=== PATIENT | female | born 1935 | race Caucasian/White ===

== ENCOUNTER → 2016-09-07 | Outpatient (CLI) | payer OTHER | LOC: MMPC 11:11 | PROVIDERS: ATTEND Internal Medicine | DX: E53.8 Deficiency of other specified B group vitamins (principal); D50.9 Iron deficiency anemia, unspecified; E11.9 Type 2 diabetes mellitus without complications; E78.5 Hyperlipidemia, unspecified; I10 Essential (primary) hypertension | CPT/HCPCS: G0463; J3420 ==

== ENCOUNTER → 2016-09-16 | Outpatient (CLI) | payer OTHER ==
[2016-09-16 10:57] LABS: EOSINOPHILS # (AUTO) 0.13 10*3/UL; EOSINOPHILS % (AUTO) 2.3 % (0-8); HEMATOCRIT 34.8 % (37.0-47.0); HEMOGLOBIN 10.9 g/dL (12.0-16.0); MEAN CORPUSCULAR HGB CONC 31.3 g/dL (33-37); MONOCYTES # (AUTO) 0.41 10*3/UL (0.3-0.8)
[2016-09-16 11:15] LABS: BUN/CREATININE RATIO 22.85 (6-20); CALCIUM 7.6 mg/dL (8.7-10.7)
[2016-09-16 11:52] LABS: BASOPHILS # (AUTO) 0.04 10*3/UL; BASOPHILS % (AUTO) 0.7 % (0-1); LYMPHOCYTES # (AUTO) 1.71 10*3/uL; MEAN CORPUSCULAR HEMOGLOBIN 25.8 PG (27-31); MEAN CORPUSCULAR VOLUME 82.3 FL (81-99); MEAN PLATELET VOLUME 9.7 FL (7.4-12.2); MONOCYTES % (AUTO) 7.3 % (5-15); NEUTROPHILS # (AUTO) 3.29 10*3/UL; NEUTROPHILS % (AUTO) 58.9 % (50-80); RED BLOOD COUNT 4.23 10^6/uL (4.20-5.40)
[2016-09-16 11:55] LABS: CHOL/HDL RATIO 3.35 RATIO (0-4.0); URIC ACID 3.5 mg/dl (2.5-7.5)
[2016-09-16 11:55] LABS: PLATELET MORPHOLOGY COMMENT NORMAL MORPHOLOGY (NORM); RBC MORPHOLOGY COMMENT NORMAL MORPHOLOGY (NORM); WBC MORPHOLOGY COMMENT NORMAL MORPHOLOGY (NORM)
== END ==
LOC: LAB 10:09
PROVIDERS: ATTEND Internal Medicine
DX: E11.9 Type 2 diabetes mellitus without complications (principal); D50.9 Iron deficiency anemia, unspecified; E78.5 Hyperlipidemia, unspecified; I10 Essential (primary) hypertension; E53.8 Deficiency of other specified B group vitamins
CPT/HCPCS: 36415; 80053; 80061; 82550; 82607; 82728; 83540; 83550; 83921; 84443; 84550; 85025

== ENCOUNTER → 2016-09-21 | Outpatient (CLI) | payer OTHER | LOC: MMPC 11:11 | PROVIDERS: ATTEND Internal Medicine | DX: D50.9 Iron deficiency anemia, unspecified (principal); E11.9 Type 2 diabetes mellitus without complications; I10 Essential (primary) hypertension | CPT/HCPCS: 83037; 99214; G0463 ==

== ENCOUNTER → 2016-10-11 | Outpatient (CLI) | payer OTHER | LOC: MMPC 11:11 | PROVIDERS: ATTEND Internal Medicine | DX: D50.9 Iron deficiency anemia, unspecified (principal) | CPT/HCPCS: G0463; J3420 ==

== ENCOUNTER 2018-08-06 12:32 | Inpatient (IN) ==
[2018-08-06] MEDS ORDERED: Sodium Chloride 0.9% 1,000 ML PRIMARY IV ONE (13:28)
[2018-08-06 14:23] LABS: VENOUS PH 7.41 (7.32-7.42)
--- NOTE | 2018-08-06 14:24 | EKG ---
[address] [place] [address] Measurements Intervals [place] Rate: 88 P: -38 [place]: 190 QRS: 67 QRSD: 92 T: 40 QT: 407 QTc: 453 Interpretive Statements SINUS RHYTHM WITH OCCASIONAL SUPRAVENTRICULAR PREMATURE COMPLEXES LOW QRS VOLTAGE IN PRECORDIAL LEADS [QRS DEFLECTION] POSSIBLE ANTERIOR MYOCARDIAL INFARCTION PROBABLY OLD No previous ECG available for comparison Electronically Signed On 08-06-18 19:00:52 MDT by Cricket Mcghee [email or web address]
[2018-08-06 14:28] LABS: Hematocrit [HCT] 28.8 % (37.0-47.0); Hemoglobin [HGB] 9.5 g/dL (12.0-16.0); RED BLOOD COUNT 3.58 10^6/uL (4.20-5.40)
[2018-08-06 14:29] LABS: BASOPHILS # (AUTO) 0.03 10*3/UL; BASOPHILS % (AUTO) 0.3 % (0-1); EOSINOPHILS # (AUTO) 0.08 10*3/UL; EOSINOPHILS % (AUTO) 0.8 % (0-8); MEAN CORPUSCULAR HEMOGLOBIN 26.6 PG (27-31); MEAN CORPUSCULAR VOLUME 81 FL (81-99); MONOCYTES # (AUTO) 0.69 10*3/UL (0.3-0.8); NEUTROPHILS # (AUTO) 7.69 10*3/UL; NEUTROPHILS % (AUTO) 78.6 % (50-80); PLATELET MORPHOLOGY COMMENT NORMAL MORPHOLOGY (NORM); RBC MORPHOLOGY COMMENT NORMAL MORPHOLOGY (NORM); WBC MORPHOLOGY COMMENT NORMAL MORPHOLOGY (NORM)
[2018-08-06 14:37] LABS: BLOOD UREA NITROGEN 36 mg/dL (7-22); SERUM ALBUMIN 2.5 g/dL (3.5-4.8)
--- NOTE | 2018-08-06 15:23 | DI ---
XR CXR 2VW PA/LAT 08/06/2018 1:28 PM History: [facility] DI ^chf Comparison: 08/04/2018. Findings: PA and lateral views of the chest demonstrate patchy left lung base opacity. There is no pn eumothorax or pleural effusion. The cardiomediastinal silhouette is normal in size with atheromatous calcifications in the arch of the tortuous thoracic aorta. The osseous structures are not significant ly changed. Impression: There is patchy left lung base opacity that could represent atelectasis versus early air space disease in the correct clinical setting.
[2018-08-06] MEDS ORDERED: BACITRACIN 0.9 GM PACKET OINT TOPICAL ONE (15:43)
--- NOTE | 2018-08-06 16:15 | PDOC ---
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 The family said that she was diagnosed in March of this year with hepatic cirrhosis likely secondary to Fu, her disease was complicated by hepatic encephalopathy she needed admission 3 times in [place] for the same condition, also she had ascites that drained twice, there was no history of infection based on what they said. There was no history of GI bleed. Had an EGD there was no varices or bleeding. She did not require blood transfusion. They live in [place] during the winter and they came back in June to [facility]. The Hepatic cirrhosis and encephalopathy was treated with diuretics in addition to rifaximin and lactulose and ammonia level was low last week and she saw Dr. Keenan her primary who told her to cut back on the dosage of the activity does and he stopped the rifaximin. Over the weekend her mentation started to decrease last night especially she was very weak very lethargic did not take her night medication. 2 days ago they brought her to the ER because of weakness and leg swelling and her ammonia level was higher than before and they are physician told them to increase the lactulose to 4 times a day. They did not have rifaximin as she ran out. Today she is more awake but she is still weak. Normally she is able to walk using her walker or a cane. She was seen by the community paramedics and he discuss it with me this morning. She was brought to the hospital. She had multiple test the ER which showed worsening renal function and she was on admitted to the hospital. The patient herself is awake she but could not tell me the day or the month or the year, however she denied chest pain, abdominal pain. She is hungry she said. She did not eat today. She did not take her morning medication. Past Medical History Medical History: 1. History of hypertension. 2. History of hypothyroidism. 3. History of GERD. 4. History of diabetes. 5. History of gout. 6. History of hepatic cirrhosis secondary to Fu complicated by ascites as needed paracentesis back in March this year, also had the hepatic encephalopathy. 6. History of atrial fibrillation Surgical History: 1. History of corticectomy. 2. History of hysterectomy. 3. History of thyroidectomy Family History: Reviewed an Not Pertinent Past Social History: Used to smoke, doesn't drink no drugs. Lives in [facility]. Tobacco Use: Never Smoker In the Past 12 Months, Have Used or Abuse Any of the Following Substance: None Medication / Allergies Home Medications: Home Medications Medication Instructions Recorded Confirmed blood sugar diagnostic strips 1 strip MISCELLANEOUS QDAY #100 08/30/17 08/06/18 strip apixaban 5 mg tablet 5 mg PO BID #180 tab 07/12/18 08/06/18 bumetanide 1 mg tablet 1 mg PO QDAY #90 tab 07/12/18 08/06/18 empagliflozin 25 mg tablet 25 mg PO QDAY #90 tab 07/12/18 08/06/18 levothyroxine 112 mcg tablet 112 mcg PO QDAY #90 tab 07/12/18 08/06/18 multivitamin tablet 1 tab PO QDAY #90 tab 07/12/18 08/06/18 omeprazole 20 mg capsule,delayed 20 mg PO QDAY #90 cap 07/12/18 08/06/18 release spironolactone 50 mg tablet 50 mg PO QDAY #90 tab 07/12/18 08/06/18 ascorbic acid (vitamin C) 500 mg 1 g PO QDAY #90 tab 07/13/18 08/06/18 tablet insulin glargine (U-300) conc. 300 20 unit SUBCUT QDAY #6 ml 07/13/18 08/06/18 unit/mL (1.5 mL) subcutaneous pen lactulose 10 gram/15 mL (15 mL) 20 g PO TID #7500 ml MDD 90ML 07/13/18 08/06/18 oral solution Lactobacillus acidophilus capsule 10 mg PO QDAY 07/24/18 08/06/18 insulin lispro (U-200) 200 unit/mL 5 unit SUBCUT QACBREAK ml 07/24/18 08/06/18 (3 mL) subcutaneous pen atorvastatin 10 mg tablet 5 mg PO QDAY #45 tab 07/25/18 08/06/18 ferrous sulfate 325 mg (65 mg 325 mg PO BID #90 tab 07/25/18 08/06/18 iron) tablet rifaximin 550 mg tablet 550 mg PO TID #270 tab 07/25/18 08/06/18 ondansetron 8 mg disintegrating 8 mg PO TID PRN #12 tab 08/02/18 08/06/18 tablet Allergies/Adverse Reactions: Allergies Allergy/AdvReac Type Severity Reaction Status Date / Time indomethacin AdvReac Intermediate nausea Verified 08/06/18 13:09 Review of Systems - Review of Systems All Systems: Reviewed & No Additional Complaints Except as Stated Exam - Vitals Vital Signs: Vital Signs Temperature 95.7 F Temperature Source Temporal Artery Scan Pulse Rate [Pulse Oximeter 88 Bilateral] Respiratory Rate 16 Blood Pressure [Left Arm] 96/60 Pulse Ox 99 Oxygen Delivery Method Room Air Height 5 ft 4 in Weight 195 lb - General Additional General Exam Details: Patient is awake, follow commands. Could not to me the day of the month or the year. - Head Head Exam: Normal Inspection - Eye Eye Exam: POSITIVE: Normal Appearance - ENT ENT Exam: POSITIVE: Normal Exam - Neck Neck Exam: Normal Inspection - Respiratory Respiratory Exam: POSITIVE: Clear to Auscultation - Bilaterally - Cardiovascular Cardiovascular Exam: POSITIVE: RRR - GI/Abdominal Additional GI/Abdominal Exam Details: Abdomen is somewhat distended soft nontender though no organomegaly. - Rectal Rectal Exam: POSITIVE: Deferred - External Exam: POSITIVE: Deferred - Extremities Additional Extremities Exam Details: Edema noted. She has multiple bruises noted. - Neurological Additional Neurological Exam Details: Awake, generally weak. Does not know the day of the month the year. Follow commands. Extremity but weak. - Psychiatric Psychiatric Exam: POSITIVE: Flat Affect Results - Labs CBC and BMP: 08/06/18 14:21 08/06/18 14:21 - EKG Data -: EKG Interpreted by Me Rate: Normal EKG Shows Normal: Sinus Rhythm - EKG Data When Compared to Previous EKG(s) There Are: Other (EKG shows normal sinus rhythm with occasional supraventricular premature complexes, poor R-wave progression in the anterior leads) - Imaging Status: Report Reviewed by Me (Chest X ray There is patchy left lung base opa city that could represent atelectasis versus early airspace disease) Assessment and Plan - Patient Problems (1) Hepatic encephalopathy Current Visit: Yes Status: Acute Comment: The family said, based on her wish, they don't want feeding tube, they don't want lactulose enema and no paracentesis. Since the patient is awake we'll try to give her oral medication using the lactulose and rifaximin. I'll give her small amounts of fluids and albumin and will see how things looks tomorrow if she does not improve or she doesn't take her medication and she is worse I told them I think she need to be comfort care and the son agreed. She is DO NOT RESUSCITATE. Code(s): K72.90 - Hepatic failure, unspecified without coma (2) Acute renal failure Current Visit: Yes Status: Acute Comment: There is some worsening of her kidney function I think we'll hold the Bumex, continue Aldactone will give a small amount of fluids see her kidney function. We'll give albumin also. Code(s): N17.9 - Acute kidney failure, unspecified (3) Diabetes Current Visit: Yes Status: Acute Comment: Continue oral medication, watch her blood sugar will hold the long acting insulin until we see her intake will write for sliding scale. Code(s): E11.9 - Type 2 diabetes mellitus without complications (4) Hypothyroidism Current Visit: No Status: Chronic Comment: Continue previous medications Qualifiers: Hypothyroidism type: unspecified Qualified Code(s): E03.9 - Hypothyroidism, unspecified (5) History of atrial fibrillation Current Visit: Yes Status: Acute Comment: Continue eliquis for now Code(s): Z86.79 - Personal history of other diseases of the circulatory system
[2018-08-06] MEDS ORDERED: Albumin Human Soln 25% 25 GM/100 ML IV.SOLN IV ONE (17:23)
[2018-08-06] MEDS ORDERED: ONDANSETRON 4 MG/2 ML VIAL IVP PRN (17:28)
[2018-08-06] MEDS ORDERED: CALCIUM CARBONATE 500 MG (TUMS) CHEWABLE TABLET PO PRN (17:28)
[2018-08-06] MEDS ORDERED: LIDOCAINE W/ SODIUM BICARB 0.5 ML SYR SUBD PRN (17:28)
[2018-08-06] MEDS ORDERED: Sodium Chloride 0.9% 500 ML PRIMARY IV ONE (17:30)
[2018-08-06] MEDS: RIFAXIMIN 550 MG PO SCH (18:09)
[2018-08-06] MEDS: LACTULOSE 20 GM PACKET PO SCH ×2 (18:09→20:07)
[2018-08-06] MEDS: Apixaban Tab 2.5 MG TABLET PO SCH (20:07)
[2018-08-06] MEDS ORDERED: Apixaban 5 MG TABLET PO SCH (21:00)
[2018-08-07 04:42] LABS: RED BLOOD COUNT 3.14 10^6/uL (4.20-5.40)
[2018-08-07 04:43] LABS: BASOPHILS % (AUTO) 0.3 % (0-1); EOSINOPHILS % (AUTO) 0.8 % (0-8); Hematocrit [HCT] 25.3 % (37.0-47.0); MEAN CORPUSCULAR HEMOGLOBIN 26.4 PG (27-31); MEAN CORPUSCULAR HGB CONC 32.8 g/dL (33-37); MEAN CORPUSCULAR VOLUME 81 FL (81-99); MEAN PLATELET VOLUME 6.7 FL (7.4-12.2); MONOCYTES % (AUTO) 6.3 % (5-15); NEUTROPHILS % (AUTO) 76.1 % (50-80)
[2018-08-07 04:44] LABS: BASOPHILS # (AUTO) 0.02 10*3/UL; EOSINOPHILS # (AUTO) 0.05 10*3/UL; Hemoglobin [HGB] 8.3 g/dL (12.0-16.0); LYMPHOCYTES # (AUTO) 1.01 10*3/uL; MONOCYTES # (AUTO) 0.39 10*3/UL (0.3-0.8); NEUTROPHILS # (AUTO) 4.67 10*3/UL; PLATELET MORPHOLOGY COMMENT NORMAL MORPHOLOGY (NORM); RBC MORPHOLOGY COMMENT NORMAL MORPHOLOGY (NORM); WBC MORPHOLOGY COMMENT NORMAL MORPHOLOGY (NORM)
[2018-08-07 05:01] LABS: BLOOD UREA NITROGEN 36 mg/dL (7-22); BUN/CREATININE RATIO 25.71 (6-20); SERUM ALBUMIN 2.3 g/dL (3.5-4.8)
[2018-08-07] MEDS: Insulin Lispro Flexpen 300 UNIT/3 ML INSULN.PEN SUBCUT SCH ×3 (07:33→18:07)
[2018-08-07] MEDS: LEVOTHYROXINE 112 MCG TABLET PO SCH (07:34)
[2018-08-07] MEDS: OMEPRAZOLE 20 MG CAPSULE PO SCH (07:34)
[2018-08-07] MEDS: LACTULOSE 20 GM PACKET PO SCH ×4 (08:31→20:18)
[2018-08-07] MEDS: Spironolactone Tab 50 MG TAB PO SCH (08:31)
[2018-08-07] MEDS: RIFAXIMIN 550 MG PO SCH ×2 (08:31→17:24)
[2018-08-07] MEDS: FERROUS SULFATE 325 MG TABLET PO SCH ×2 (08:32→20:17)
[2018-08-07] MEDS: Apixaban Tab 2.5 MG TABLET PO SCH (08:32)
[2018-08-07] MEDS: Multivitamin Tab 1 TAB PO SCH (08:32)
--- NOTE | 2018-08-07 08:49 | PDOC ---
General Adult HPI - General Chief Complaint: Altered Mental Status Stated Complaint: ALTERED MENTAL STATUS Date Seen by Provider: 08/06/18 Time Seen by Provider: 13:05 Source: POSITIVE: Patient, Other (, son) Exam Limitations: POSITIVE: No limitations Nurse's Notes Reviewed & Considered: Yes EMS Report Reviewed & Considered: Verbal - History of Present Illness Initial Comment: The patient is an 83-year-old female who is brought to the emergency room. The patient by history has a history of long-standing stage IV hepatic cirrhosis. She also has a history of diabetes mellitus, and COPD. One and a half months ago the son brought his parents from their home in [place] to [place] because they were no longer able to safely care for themselves. Patient was seen in the emergency room on 08/04/2018 due to pedal edema and transudate of fluid from her lower extremities. Since that visit the son reports that the patient has become less responsive and unable to ambulate on her own. He states that I day ago he was helping the patient to the bathroom and she became "like weight" and co llapsed and the son was holding the patient up by her arms and the patient sustained a skin tear where the patient was grasping her, left upper arm. Patient is on Ahlquist and family state that she was placed on Ahlquist by "a heart doctor in [place]". They are not sure what the indication for this medication is. Patient is also on lactulose, Humalog, levothyroxine. Bumetanide, ferosol,rifaximin. Family members state that she is becoming confused and has recently been misidentifying family members. Basically, the patient has had progressive confusion and weakness and inability to care for herself. Family members bring in documentation that the patient has a DO NOT RESUSCITATE status. Patient documents that she has chosen not to have paracentesis. The patient and the family's main goal is to maintain patient comfort. Patient reportedly has never had alcohol. Patient states that she has been diagnosed with "nonalcoholic cirrhosis ". No known fevers or chills. Have you received a tetanus shot in the past 10 years?: Unknown Body Location Affected: REPORTS: Other Timing: REPORTS: Gradual (Progressive confusion and weakness as above), Getting Worse Duration: >1 week Severity: Moderate Quality: REPORTS: Other (Patient denies any pain anywhere) Context: REPORTS: Other (As above) Modifying Factors: improves with: Nothing Similar Symptoms Previously: Yes Recent Care Received: REPORTS: Recently Seen, Treated by MD (As above) Any Prior Injuries Related to Current Complaint?: Yes (skin tear left upper arm as above) - Patient Home Medications Home Medications: Home Medications blood sugar diagnostic strips 1 strip MISCELLANEOUS QDAY #100 strip 08/30/17 apixaban 5 mg tablet 5 mg PO BID #180 tab 07/12/18 bumetanide 1 mg tablet 1 mg PO QDAY #90 tab 07/12/18 empagliflozin 25 mg tablet 25 mg PO QDAY #90 tab 07/12/18 levothyroxine 112 mcg tablet 112 mcg PO QDAY #90 tab 07/12/18 multivitamin tablet 1 tab PO QDAY #90 tab 07/12/18 omeprazole 20 mg capsule,delayed release 20 mg PO QDAY #90 cap 07/12/18 spironolactone 50 mg tablet 50 mg PO QDAY #90 tab 07/12/18 ascorbic acid (vitamin C) 500 mg tablet 1 g PO QDAY #90 tab 07/13/18 insulin glargine (U-300) conc. 300 unit/mL (1.5 mL) subcutaneous pen 20 unit SUBCUT QDAY #6 ml 07/13/18 lactulose 10 gram/15 mL (15 mL) oral solution 20 g PO TID #7500 ml MDD 90ML 07/13/18 Lactobacillus acidophilus capsule 10 mg PO QDAY 07/24/18 insulin lispro (U-200) 200 unit/mL (3 mL) subcutaneous pen 5 unit SUBCUT QACBREAK ml 07/24/18 atorvastatin 10 mg tablet 5 mg PO QDAY #45 tab 07/25/18 ferrous sulfate 325 mg (65 mg iron) tablet 325 mg PO BID #90 tab 07/25/18 rifaximin 550 mg tablet 550 mg PO TID #270 tab 07/25/18 ondansetron 8 mg disintegrating tablet 8 mg PO TID PRN #12 tab 08/02/18 - Patient Allergies Allergies/Adverse Reactions: Allergies Allergy/AdvReac Type Severity Reaction Status Date / Time indomethacin AdvReac Intermediate nausea Verified 08/06/18 13:09 Past Medical History - heen HEENT History: Denies History Cardiovascular History: Hypertension, Hyperlipidemia Respiratory History: Snoring Gastrointestinal History: GERD, Irritable Bowel Syndrome, Other (please comment) Additional Gastrointestinal History: Stage 4 Liver Cirrohsis Genitourinary History: Denies History Endocrine History: Type 2 Diabetes (oral), Hypothyroidism Musculoskeletal History: Gout Prosthesis or Implant: No Neurological History: Motion Sickness Blood Disorders: Anemia Psychiatric History: Denies History History of Sexually Transmitted Diseases: No Female Reproductive History: Denies History LMP: UNKNOWN Obstetrical History: Denies History Cancer History: Denies History In Past Year Been Physically Harmed or Verbally Threatened: No History of MDRO: No History of Other Communicable Diseases: No Tobacco Use: Never Smoker Alcohol Use: None In the Past 12 Months, Have Used or Abuse Any Substance: None Previous Surgical History: Yes Type / Date of Surgery: MARIO/ COLONOSCOPY/ EGD/ HYST/ THYROIDECTOMY Anesthesia Reactions: No Malignant Hyperthermia: No Significant Family History: Cancer, Diabetes Past Medical History Reviewed: Reviewed - No Changes ROS - Limitations ROS Limitations: Clinical Condition [place]: REPORTS: Weakness Cardiovascular: REPORTS: Denies Cardiac Symptoms Respiratory: REPORTS: Denies Resp Symptoms Neurological: REPORTS: Confusion Gastrointestinal: REPORTS: Denies GI Symptoms Endocrine: REPORTS: Denies Symptoms Musculoskeletal: REPORTS: Denies MS Symptoms Genitourinary: REPORTS: Denies Symptoms Eyes: REPORTS: Denies Symptoms ENT: REPORTS: Denies Symptoms Skin: REPORTS: Other (Skin tear left upper arm) Lympathic: REPORTS: Denies Lympathic Symptoms Immunologic: POSITIVE: Denies Symptoms Psychiatric: POSITIVE: Denies Psych Symptoms General Adult Exam - General Appearance General Appearance: POSITIVE: Cooperative, No Acute Distress. NEGATIVE: Alert (Confused to date present in and has reportedly been misidentifying family members.), No Evidence of Trauma (Old skin tear left upper arm) - HEENT HEENT: POSITIVE: Head Inspection Nml, Eyes Inspection Nml, Ears Inspection Nml, Nose Inspection Nml, Oral/Dental Inspect. Nml, Pharynx Inspect. Nml, PERRL, EOMI - Pupils Pupil Size: 4 mm: Bilateral (PERRLA) - Neck Neck: POSITIVE: Normal Inspection, Thyroid Normal - Respiratory Respiratory: POSITIVE: No Respiratory Distress, Breath Sounds Normal, Chest Non- Tender - Cardiovascular Cardiovascular: POSITIVE: Regular Rate & Rhythm, No Murmur, No Gallop, PMI Normal Peripheral Pulses: Radial (R): 2+, Radial (L): 2+ - Abdomen Abdomen: Soft: (All Quadrants), Normal Bowel Sounds: (All Quadrants), Denies Tenderness: (All Quadrants), No Splenomegaly: (All Quadrants), No Hepatomegaly: (All Quadrants), No Guarding: (All Quadrants), No Rebound: (All Quadrants), No Palpable Pulse: (All Quadrants), No Palpabale Mass: (All Quadrants), Distention: (RUQ), (LUQ), (RLQ), (LLQ) (diffuse ascites) Additional Abdominal Details: Patient has diffuse abdominal distention due to ascites. No real tenderness. No masses, organomegaly or rebound. - Back Back: POSITIVE: Normal Inspection - Skin Skin: POSITIVE: Other (Telangiectasias to the anterior chest and face) - Extremities Extremity: Non-Tender: (All Extremities), Normal ROM: (All Extremities), Normal Inspection: (All Extremities) - Neurological / Psychological Neurological: POSITIVE: Affect Apporpriate, Oriented X3, cruise guide Normal As Tested, Motor Normal, Sensation Normal Images - Complete Complete: 1 - Ascites 2 - He will edema 3 - Skin tear General Adult Progress - Results Reviewed by me Lab Results:: Laboratory Results 08/06/18 08/06/18 08/06/18 14:18 14:21 14:21 WBC 9.8 RBC 3.58 L Hgb 9.5 L Hct 28.8 L MCV 81 MCH 26.6 L MCHC 33.0 RDW Coeff of [place]acia 15.7 H Plt Count 240 MPV 7.0 L Immature Gran % (Auto) 0 Neut % (Auto) 78.6 Lymph % (Auto) 13.3 [place] % (Auto) 7.0 Eos % (Auto) 0.8 Baso % (Auto) 0.3 Immature Gran # (Auto) 0 Neut # (Auto) 7.69 Lymph # (Auto) 1.30 [place] # (Auto) 0.69 Eos # (Auto) 0.08 Baso # (Auto) 0.03 WBC Morphology Comment Normal morphology Plt Morphology Comment Normal morphology RBC Morph Comment Normal morphology PT 25.9 H INR 2.23 VBG pH 7.41 VBG pCO2 26 L VBG HCO3 21 L VBG Base Excess -3 L Sodium Potassium Chloride Carbon Dioxide Anion Gap BUN Creatinine Estimated GFR BUN/Creatinine Ratio Glucose Calculated Osmolality Lactic Acid Calcium Magnesium Total Bilirubin AST ALT Alkaline Phosphatase Ammonia Total Creatine Kinase Troponin I C-Reactive Protein NT-Pro-B Natriuret Pep Total Protein Albumin Globulin Albumin/Globulin Ratio 08/06/18 08/06/18 08/06/18 14:21 14:21 14:21 WBC RBC Hgb Hct MCV MCH MCHC RDW Coeff of [place] Plt Count MPV Immature Gran % (Auto) Neut % (Auto) Lymph % (Auto) [place] % (Auto) Eos % (Auto) Baso % (Auto) Immature Gran # (Auto) Neut # (Auto) Lymph # (Auto) [place] # (Auto) Eos # (Auto) Baso # (Auto) WBC Morphology Comment Plt Morphology Comment RBC Morph Comment PT INR VBG pH VBG pCO2 VBG HCO3 VBG Base Excess Sodium 133 L Potassium 3.7 L Chloride 98 Carbon Dioxide 19 L Anion Gap 16 BUN 36 H Creatinine 1.6 H Estimated GFR [employer] BUN/Creatinine Ratio 22.50 H Glucose 119 H Calculated Osmolality 284.0 Lactic Acid 2.6 H Calcium 7.9 L Magnesium 2.3 Total Bilirubin 1.4 H D AST 53 H ALT 35 Alkaline Phosphatase 247 H Ammonia Total Creatine Kinase 64 Troponin I 0.026 C-Reactive Protein 8.6 H NT-Pro-B Natriuret Pep Total Protein 4.9 L Albumin 2.5 L Globulin 2.4 L Albumin/Globulin Ratio 1.00 L 08/06/18 08/06/18 14:21 14:21 WBC RBC Hgb Hct MCV MCH MCHC RDW Coeff of [place] Plt Count MPV Immature Gran % (Auto) Neut % (Auto) Lymph % (Auto) [place] % (Auto) Eos % (Auto) Baso % (Auto) Immature Gran # (Auto) Neut # (Auto) Lymph # (Auto) [place] # (Auto) Eos # (Auto) Baso # (Auto) WBC Morphology Comment Plt Morphology Comment RBC Morph Comment PT INR VBG pH VBG pCO2 VBG HCO3 VBG Base Excess Sodium Potassium Chloride Carbon Dioxide Anion Gap BUN Creatinine Estimated GFR BUN/Creatinine Ratio Glucose Calculated Osmolality Lactic Acid Calcium Magnesium Total Bilirubin AST ALT Alkaline Phosphatase Ammonia 69 H Total Creatine Kinase Troponin I C-Reactive Protein NT-Pro-B Natriuret Pep 562 H Total Protein Albumin Globulin Albumin/Globulin Ratio CBC and BMP: 08/07/18 04:10 08/07/18 04:10 - Patient's Progress Pain Medication Addressed: POSITIVE: Not Applicable School/Work Release Addressed: POSITIVE: Not Applicable Re-Examine Time: 15:30 Re-Examine Comment: Case discussed with Dr. Liu. Also had a long discussion with family members. Family members, and patient's expressed wishes, or for care and comfort only. However, patient cannot be adequately cared for in her present living environment. Patient is admitted; alternative placement will be considered. Status: POSITIVE: Unchanged, Re-Examined Antibiotics Given: No - Consult Consult (If Yes, Name of Consulting MD & Time Called): Yes (Dr. Liu, hospitalist, [id number]) Consulting MD will see pt:: POSITIVE: [facility] Admit Counseled: POSITIVE: Patient, Family, RE: Lab Results, RE: DX, RE: Need for F/U Patient Care Time - Estimated PCT Patient Care Time (In Minutes): 60 Vital Signs - VS Reviewed Vital Signs Reviewed: Yes Discharge Clinical Impression: Hepatic encephalopathy, Confusion, Weakness, Skin tear Discharge Disposition: Admit to Inpatient Condition: Fair Date Decision to Admit to Inpatient: 08/06/18 Time Decision to Admit to Inpatient: 15:15
--- NOTE | 2018-08-07 10:36 | DCSUMMARY ---
Exam - Vitals Vital Signs: Vital Signs Temperature 97 F Temperature Source Temporal Artery Scan Pulse Rate [Pulse Oximeter 79 Bilateral] Respiratory Rate 17 Blood Pressure [Right Arm] 94/39 Blood Pressure [Left Arm] 96/60 Pulse Ox 99 Oxygen Delivery Method Room Air Height 5 ft 4 in Weight 178 lb 11.2 oz
--- NOTE | 2018-08-07 11:54 | PDOC(PROG) ---
Interval History: This very nice 83-year-old female with past medical history the significant for hepatic cirrhosis with ascites and hepatic encephalopathy did other medical issues are hypothyroidism, history of A. fib and diabetes. She was brought to the hospital because of lethargy and weakness. She was diagnosed in March in [place] with hepatic cirrhosis most likely secondary to Fu she was admitted 3 times in [place] for complications of ascites which was drained twice. She did have an EGD there was no varices or bleeding. Patient was treated with diuretics, on top of rifaximin and lactulose for her ammonia levels they cut back 2 weeks ago as per the primary care physician. Over the weekend her mentation started to decrease and became very weak and lethargic. She was seen in the ER discharged home with increased lactulose this did not work and sent back to the ER and admitted for hepatic encephalopathy with the end-stage liver disease with elevated BUN and creatinine and elevated ammonia levels she was restarted on her lactulose and rifaximin her mentation as improved. Objective : Data - Labs CBC and BMP: 08/07/18 04:10 08/07/18 04:10 Objective : Exam - General General Appearance: Cooperative - Respiratory Respiratory Exam: Clear to Auscultation - Bilaterally, Breathing Non Labored, Normal To Percussion, Normal to Percussion and Palpation - Cardiovascular Cardiovascular Exam: RRR, No Murmur, No Clicks, No Gallops, No Rubs, PMI Non- Displaced - GI/Abdominal GI/Abdominal Exam: Positive for Ascites - Extremities Extremities Exam: +1 Edema Assessment and Plan - Patient Problems (1) Anemia Current Visit: Yes Status: Acute Code(s): D64.9 - Anemia, unspecified (2) Hypokalemia Current Visit: Yes Status: Acute Code(s): E87.6 - Hypokalemia (3) Acute renal failure Current Visit: Yes Status: Acute Code(s): N17.9 - Acute kidney failure, unspecified (4) Confusion Current Visit: Yes Status: Acute Code(s): R41.0 - Disorientation, unspecified (5) Diabetes Current Visit: Yes Status: Acute Code(s): E11.9 - Type 2 diabetes mellitus without complications (6) Hepatic encephalopathy Current Visit: Yes Status: Acute Code(s): K72.90 - Hepatic failure, unspecified without coma - Assessment / Plan Additional Assessment/Plan Details: #1 end-stage liver disease cirrhosis with ascites elevated INR of 2 hemoglobin of 8. I had a 2 hour meeting with son and granddaughter and . The granddaughter has spoken at length with her grandmother. She wants no procedures done no paracenteses or any other procedure she just like to continue her lactulose or rifaximin. Morphine for pain. If she does not improve then will like to consult hospice. Also we have agreed to insert Rivera catheter since she is incontinent to alleviate her sitting in her urine. Continue Aldactone for now we will also stop L a course everybody knows that she is a little bit of a higher chance of stroke without L Oquist because of her A. fib but hemoglobin is 8 and INR is up to 2. Nurse was present for this whole conversation.
[2018-08-07] MEDS ORDERED: Albumin Human Soln 25% 25 GM/100 ML IV.SOLN IV ONE (11:56)
[2018-08-07] MEDS ORDERED: Sodium Chloride 0.9% 50 ML ONE (13:28)
[2018-08-07] MEDS: POTASSIUM CHLORIDE 20 MEQ TAB PO SCH ×2 (13:30→20:17)
[2018-08-07] MEDS: MORPHINE SULFATE 2 MG/1 ML IVP PRN ×2 (13:31→17:23)
[2018-08-07 13:49] LABS: BILIRUBIN,URINE NEGATIVE (NEG); CLARITY,URINE TURBID (CLEAR); COLOR,URINE YELLOW (Y); GLUCOSE, URINE (UA) 500 mg/dL (NEG); OCCULT BLOOD,URINE MODERATE (NEG); PH,URINE 5.5 (5.0-8.5); PROTEIN,URINE 30 mg/dl (NEG); UROBILINOGEN,URINE 0.2 EU/dL (0.2)
[2018-08-07 13:54] LABS: URINE SAMPLE TYPE CATH SPECIMEN; WBC,URINE >100
[2018-08-07] MEDS: FUROSEMIDE 10 MG/1 ML - 2 ML VIAL IVP SCH (15:38)
[2018-08-07] MEDS ORDERED: LIDOCAINE HCL 2 % 10 ML JELLY URO-JECT TOPICAL PRN (18:29)
[2018-08-07] MEDS ORDERED: DIAZEPAM 2 MG TABLET PO PRN (20:53)
[2018-08-08] MEDS: MORPHINE SULFATE 20 MG/1 ML ORAL SOLN PO PRN ×12 (03:23→23:22)
[2018-08-08 03:47] VITALS: BP 108/52; TEMP 98.8; O2SAT 93
[2018-08-08] MEDS: Insulin Lispro Flexpen 300 UNIT/3 ML INSULN.PEN SUBCUT SCH (07:19)
[2018-08-08] MEDS: OMEPRAZOLE 20 MG CAPSULE PO SCH (07:20)
[2018-08-08] MEDS: LEVOTHYROXINE 112 MCG TABLET PO SCH (07:20)
[2018-08-08] MEDS: LACTULOSE 20 GM PACKET PO SCH (10:13)
[2018-08-08] MEDS: POTASSIUM CHLORIDE 20 MEQ TAB PO SCH (10:13)
[2018-08-08] MEDS: RIFAXIMIN 550 MG PO SCH (10:13)
[2018-08-08] MEDS: Spironolactone Tab 50 MG TAB PO SCH (10:13)
[2018-08-08] MEDS: FERROUS SULFATE 325 MG TABLET PO SCH (10:14)
[2018-08-08] MEDS: FUROSEMIDE 10 MG/1 ML - 2 ML VIAL IVP SCH (10:14)
[2018-08-08] MEDS: Multivitamin Tab 1 TAB PO SCH (10:14)
--- NOTE | 2018-08-08 10:28 | PDOC(PROG) ---
Interval History: Patient has no complaints is not in pain. Still we'll wants nothing done except her by mouth meds that she is taking now. Objective : Data - Labs CBC and BMP: 08/07/18 04:10 08/07/18 04:10 Objective : Exam - General General Appearance: No Acute Distress, Cooperative - Respiratory Respiratory Exam: Clear to Auscultation - Bilaterally, Breathing Non Labored, Normal To Percussion, Normal to Percussion and Palpation - Cardiovascular Cardiovascular Exam: RRR, No Murmur, No Clicks, No Gallops, No Rubs, PMI Non- Displaced - GI/Abdominal GI/Abdominal Exam: Positive for Ascites - Neurological Neurological Exam: Alert Assessment and Plan - Patient Problems (1) Acute renal failure Current Visit: Yes Status: Acute Code(s): N17.9 - Acute kidney failure, unspecified (2) Anemia Current Visit: Yes Status: Acute Code(s): D64.9 - Anemia, unspecified (3) Confusion Current Visit: Yes Status: Acute Code(s): R41.0 - Disorientation, unspecified (4) Hepatic encephalopathy Current Visit: Yes Status: Acute Code(s): K72.90 - Hepatic failure, unspecified without coma (5) History of atrial fibrillation Current Visit: Yes Status: Acute Code(s): Z86.79 - Personal history of other diseases of the circulatory system (6) Hypokalemia Current Visit: Yes Status: Acute Code(s): E87.6 - Hypokalemia (7) Skin tear Current Visit: Yes Status: Acute - Assessment / Plan Additional Assessment/Plan Details: Again we are treating the symptoms of the discomfort and pain please see yesterday's note no change in plan of care we'll substitute by mouth Lasix from IV noninvasive procedures family is discussing hospice options at this time continue treatment symptoms of discomfort and pain spoke to grandson and son and on agreement
[2018-08-08] MEDS ORDERED: MORPHINE SULFATE 20 MG/1 ML ORAL SOLN PO PRN (12:59)
[2018-08-08] MEDS ORDERED: FUROSEMIDE 20 MG TABLET PO SCH (13:00)
[2018-08-08] MEDS ORDERED: FUROSEMIDE 40 MG TABLET PO SCH (13:00)
[2018-08-08] MEDS ORDERED: DIAZEPAM 10 MG/2 ML (5 MG/1 ML) CARPUJECT IVP PRN (17:26)
[2018-08-09] MEDS: MORPHINE SULFATE 20 MG/1 ML ORAL SOLN PO PRN ×6 (00:33→20:00)
--- NOTE | 2018-08-09 12:31 | PDOC(PROG) ---
Interval History: Patient is resting peacefully unresponsive continue to be treated for symptoms of discomfort and pain. Discussed with all family members all still in agreement Objective : Data - Labs CBC and BMP: 08/07/18 04:10 08/07/18 04:10 Assessment and Plan - Patient Problems (1) Acute renal failure Current Visit: Yes Status: Acute Code(s): N17.9 - Acute kidney failure, unspecified (2) Anemia Current Visit: Yes Status: Acute Code(s): D64.9 - Anemia, unspecified (3) Confusion Current Visit: Yes Status: Acute Code(s): R41.0 - Disorientation, unspecified (4) Hepatic encephalopathy Current Visit: Yes Status: Acute Code(s): K72.90 - Hepatic failure, unspecif ied without coma (5) History of atrial fibrillation Current Visit: Yes Status: Acute Code(s): Z86.79 - Personal history of other diseases of the circulatory system (6) Hypokalemia Current Visit: Yes Status: Acute Code(s): E87.6 - Hypokalemia (7) Skin tear Current Visit: Yes Status: Acute
[2018-08-09 13:54] VITALS: RESP 6
--- NOTE | 2018-08-09 20:56 | DCSUMMARY ---
Hospitalization Summary Hospital Course: Final Discharge Diagnosis: Current Visit Problems Problem Status Onset Code Hepatic encephalopathy Acute K72.90 Acute renal failure Acute N17.9 Diabetes Acute E11.9 History of atrial fibrillation Acute Z86.79 Confusion Acute R41.0 Weakness Acute R53.1 Skin tear Acute Anemia Acute D64.9 Hypokalemia Acute E87.6 Diagnostic Data, Laboratory Data, and Procedures of Signifigance: History and Physical pertinent to Admission: Course of Hospitalization: Is a very nice 83-year-old female with history of cirrhosis diagnosed in March had multiple admission in [place] for elevated ammonia and confusion. Was admitted here for the same with elevated ammonia her lactulose was restarted as well as her other anti-ammonia medication patient did improve some mentally and was more clear after multiple family meetings please see my previous notes they determine that and requested to withdraw care this was the wish of the patient as well which she voiced to family members. This was obtained with sublingual morphine to keep respirations between 10 and 12 patient peacefully this evening. On the date of discharge, the patient was examined: Exam - Vitals Vital Signs: Vital Signs Temperature 98.8 F Temperature Source Oral Pulse Rate [Pulse Oximeter 97 Bilateral] Respiratory Rate 6 Blood Pressure [Right Arm] 108/52 Blood Pressure [Left Arm] 96/60 Pulse Ox 93 Oxygen Delivery Method Room Air Height 5 ft 4 in Weight 178 lb 11.2 oz Patient Problems - Patient Problem List (1) Acute renal failure Current Visit: Yes Status: Acute Code(s): N17.9 - Acute kidney failure, unspecified Category: Medical (2) Anemia Current Visit: Yes Status: Acute Code(s): D64.9 - Anemia, unspecified Category: Medical (3) Confusion Current Visit: Yes Status: Acute Code(s): R41.0 - Disorientation, unspecified Category: Medical (4) Hepatic encephalopathy Current Visit: Yes Status: Acute Code(s): K72.90 - Hepatic failure, unspecified without coma Category: Medical (5) History of atrial fibrillation Current Visit: Yes Status: Acute Code(s): Z86.79 - Personal history of other diseases of the circulatory system Category: Medical (6) Hypokalemia Current Visit: Yes Status: Acute Code(s): E87.6 - Hypokalemia Category: Medical (7) Skin tear Current Visit: Yes Status: Acute Category: Medical
== END 2018-08-09 23:38 | disposition expired | DRG 947 ==
LOC: ER 12:32 → MED/SURG 15:57
PROVIDERS: ADMIT Internal Medicine; ATTEND Internal Medicine